=== PATIENT | female | born 1970 | race Caucasian/White ===

== ENCOUNTER 2017-03-25 02:44 | Emergency (ER) | payer BC ==
[~2017-03-25] VITALS: Ht 162.6 cm; Wt 88.6 kg
[2017-03-25 02:46] VITALS: TEMP 98.5; Ht 162.6 cm; Wt 88.6 kg
[2017-03-25] MEDS ORDERED: NO CURRENT HOME MEDS (03:00)
--- NOTE | 2017-03-25 03:05 | ERPDOC ---
Departure Disposition Decision Date: March 25, 2017 Disposition Decision Time: 04:44 Disposition: 01 DISCHARGED HOME, SELF-CARE Impression Impression Impression: Primary Impression: Abdominal pain Additional Impressions: Nausea & vomiting Dehydration Severity: Moderate Condition: Improved Seen By: Physician only Patient Instructions: Acute Abdominal Pain (ED) Problems/Meds/Labs Reviewed?: Yes Medications reviewed and manag: Yes Additional Instructions: Zofran 4 mg every 6 hours as needed for nausea. Clear liquids for 24-48 hours to rest bowel. This weekend please stick with a bland, soft diet. See her primary care provider. Return to ED if symptoms worsen. Follow up care ordered?: Yes Mental Status: Alert, Oriented HPI - Abdominal Pain General Chief Complaint: Abdominal Pain Stated Complaint: ABD PAIN, N/V Time Seen by Provider: 03:02 HPI - Abdominal Pain Initial Comments 46-year-old female presents with abdominal pain, nausea vomiting for approximately 8 hours. She began getting sick about 8:00 or 9:00 last night. She felt a little nauseated after lunch and thought she might of eat and too quickly. It that feeling did not settle during the afternoon, and then tonight she began throwing up. She has midepigastric pain and was unable to sleep tonight due to the pain. Rates pain is 7-8 out of 10. No fever or chills, no abdominal trauma. is not sick. Allergies: Coded Allergies: NKDA (Verified Allergy, Unknown, 03/25/17) Past History Past Medical History Pt denies signifigant PMH Surgical History Denies Surgeries Family History Family PMH: FOUND: diabetes Social History Smoking Status: Current every day smoker Substance Use Type: does not use Record Review Pertinent history updated: Yes Review of Systems Pulmonary Respiratory: see HPI GI Upper Abdomen: see HPI Lower Abdomen: see HPI All other Systems All Other Systems: Reviewed and Negative Physical Exam General General Nourishment: well nourished, well developed, appears stated age General Body Habitus: well groomed Vitals and Pain First Documented Vital Signs Date Time Temp Pulse Resp B/P Pulse Ox O2 Delivery O2 Flow Rate FiO2 03/25/17 02:46 98.5 96 14 147/79 96 03/25/17 03:00 Room Air Weight: Kilograms: Height (feet): Height (inches): Triage Pain Scale: Normal Exams: Head: Normocephalic w/o trauma Neck: Full range of motion, without adenopathy, JVD, bruits or thyromegaly Chest/Resp: Clear all marcum, with good airflow, and symmetry bilaterally CV: Regular rate and rhythm, without murmur or gallop, Pulses 2+ all extremities, capillary refill, <2 seconds all ext., no pedal edema noted Neurologic: Patient is alert, and oriented, cranial nerves, motor/sensory/ cerebellar, exams w/o gross deficits, to observation Psychiatric: Patient exhibits, appropriate attention, emotion and affect Abdomen (brief) Abdominal Brief: FOUND: bowel normo active x4, soft, tender (midepigastric), NOT FOUND: distended, hepatosplenomegaly, pulsatile mass Neurologic (brief) Neurological Brief: FOUND: CN w/o gross def to obs, motor-no gross deficits, sensory-no gross deficits Differential Diagnoses Considering: Aortic Dissection, Biliary Colic, Bowel Obstruction, Cholecystitis , Constipation, Crohn's, Diverticulitis, Gastroenteritis, IBS, Ileus, UTI Progress Results/Orders Orders Procedure Category Date Status Time Iv Lock (Ed Only) EDM 03/25/17 Transmitted 03:07 Cbc W/Auto LAB 03/25/17 Complete Diff-Reflex Manual 03:07 Cmp - Comprehensive LAB 03/25/17 Complete Metabolic 03:07 Lipase LAB 03/25/17 Complete 03:07 Kub W/Upright RAD 03/25/17 Taken 03:07 Normal Saline (Normal PHA 03/25/17 Complete Saline Iv) 03:07 Morphine Sulfate PHA 03/25/17 Complete (Morphine) 03:15 Ondansetron Inj PHA 03/25/17 Complete (Zofran) 03:15 G.I. Cocktail PHA 03/25/17 Complete (/Maalox/Lidocaine 03:15 Ketorolac (Toradol) PHA 03/25/17 Complete 03:15 LAB 03/25/17 Complete Qualitative, Serum 03:07 UA, LAB 03/25/17 Complete Dip&Micro(Complete) & 03:33 Lab Results Laboratory Tests Test 03/25/17 03:33 White Blood Count 9.9T/MM3 Red Blood Count 4.46M/MM3 Hemoglobin 13.9GM/DL Hematocrit 40.4% Mean Corpuscular Volume 90.6UM3 Mean Corpuscular Hemoglobin 31.2UUG Mean Corpuscular Hemoglobin Concent 34.4GM/DL RDW Standard Deviation 39.4FL Platelet Count 226T/MM3 Mean Platelet Volume 9.6UM3 Immature Granulocyte % (Auto) % Neutrophils (%) (Auto) % Lymphocytes (%) (Auto) % Monocytes (%) (Auto) % Eosinophils (%) (Auto) % Basophils (%) (Auto) % Absolute Immature Granulocyte (auto T/MM3 Absolute Neutrophils (auto) T/MM3 Absolute Lymphocytes (auto) T/MM3 Absolute Monocytes (auto) T/MM3 Absolute Eosinophils (auto) T/MM3 Absolute Basophils (auto) T/MM3 Neutrophils % (Manual) 91.0% Band Neutrophils % 1.0% Lymphocytes % (Manual) 7.0% Monocytes % (Manual) 1.0% Absolute Neutrophils (Manual) 9.0T/MM3 Band Neutrophils # 0.1T/MM3 Lymphocytes # (Manual) 0.7T/MM3 Monocytes # (Manual) 0.1T/MM3 Red Cell Morphology Comment Normal Urine Collection Type Cleancatch-midstream Urine Color Yellow Urine Turbidity Cloudy Urine pH 6.0 Urine Specific [place] 1.020 Urine Protein Negative Urine Glucose (UA) Negative Urine Ketones 2+ Urine Blood 1+ Urine Nitrite Negative Urine Bilirubin Negative Urine Urobilinogen 0.2EU/DL Urine Leukocyte Esterase 1+ Urine RBC None seen/HPF Urine WBC 3-5/HPF Urine Amorphous Urates Many Urine Bacteria None seen Urine Culture Indicated Cult not indicated Turbidity < 20 Sodium Level 140MEQ/L Potassium Level 3.8MEQ/L Chloride Level 104MEQ/L Carbon Dioxide Level 23MEQ/L Anion Gap 13MEQ/L Blood Urea Nitrogen 16.0MG/DL Creatinine 0.7MG/DL Glomerular Filtration Rate Calc 90 BUN/Creatinine Ratio 23RATIO Glucose Level 139MG/DL Calculated Osmolality 272MOSM/KG Calcium Level 8.9MG/DL Total Bilirubin 0.90MG/DL Icterus Index < 2 Aspartate Amino Transf (AST/SGOT) 22U/L Alanine Aminotransferase (ALT/SGPT) 49U/L Alkaline Phosphatase 50U/L Total Protein 7.3G/DL Albumin 4.6G/DL Globulin 2.7G/DL Albumin/Globulin Ratio 1.7RATIO Lipase 77U/L Human Chorionic Gonadotropin, Qual Negative Chemistry Specimen Hemolysis < 15 Medications Current ED Medications Sodium Chloride (Normal Saline IV) 1,000 ml @ 1,000 mls/hr Q1H ONCE IV Last administered on 03/25/17 03:32; Start 03/25/17 at 03:07; Stop 03/25/17 at 04:06 ; Status DC Morphine Sulfate (Morphine) 2 mg O ONCE IV Last administered on 03/25/17 03: 33; Start 03/25/17 at 03:15; Stop 03/25/17 at 03:16; Status DC Ondansetron HCl (Zofran) 4 mg O ONCE IV Last administered on 03/25/17 03:37; Start 03/25/17 at 03:15; Stop 03/25/17 at 03:16; Status DC Pharmacy Profile Note (/Maalox/ Lidocaine Soln) 30 ml O ONCE PO Last administered on 03/25/17 03:23; Start 03/25/17 at 03:15; Stop 03/25/17 at 03:16 ; Status DC Ketorolac Tromethamine (Toradol) 30 mg O ONCE IV Last administered on 03:37; Start 03/25/17 at 03:15; Stop 03/25/17 at 03:16; Status DC Progress Progress Patient's pain and nausea responded nicely to 1 L of normal saline, 2 mg of morphine, 30 mg of Toradol and 4 mg of Zofran IV. Labs returned appropriate, and I do think this is most likely gallbladder. Patient does have an acute dilation of bowel without significant air fluid levels, which likely contributed to her pain tonight. She will go on clear liquids for the next 48 hours, and follow-up with her primary care provider to set up an ultrasound. If pain worsens, she should return to the ED. She is discharged with Zofran for nausea and will follow up with primary care provider SIDNEY. DEL JOHNSON MD March 25, 2017 03:05
--- NOTE | 2017-03-25 03:20 | NUR ---
BR PT AMBULATES TO BR AND VOIDS, URINE SAMPLE IS OBTAINED FOR LAB.
[2017-03-25] MEDS: G.I. COCKTAIL 30ml PO ONE (03:23)
[2017-03-25] MEDS: NORMAL SALINE 1,000 ML IV ONE (03:32)
[2017-03-25] MEDS: MORPHINE SULFATE 4 MG SYRINGE IV ONE (03:33)
[2017-03-25] MEDS: KETOROLAC 30mg/ml INJECTION IV ONE (03:37)
[2017-03-25] MEDS: ONDANSETRON 4mg/2ml INJECTION IV ONE (03:37)
[2017-03-25 03:40] LABS: BLOOD, URINE 1+ (NEGATIVE); COLOR,URINE YELLOW (YELLOW); HCT - HEMATOCRIT 40.4 % (36-46); HGB - HEMOGLOBIN 13.9 GM/DL (12-16); LEUKOCYTE ESTERASE ,URINE 1+ (NEGATIVE); MEAN CORPUSCULAR HGB 31.2 UUG (26-34); MEAN CORPUSCULAR HGB CONC(MCHC 34.4 GM/DL (31-37); MEAN CORPUSCULAR VOLUME 90.6 UM3 (80-100); MEAN PLATELET VOLUME 9.6 UM3 (9.4-12.4); NITRITE,URINE NEGATIVE (NEGATIVE); RED BLOOD COUNT 4.46 M/MM3 (4.00-5.20); UROBILINOGEN,URINE 0.2 EU/DL (NORMAL); WBC - WHITE BLOOD COUNT 9.9 T/MM3 (4.5-11.0)
[2017-03-25 03:46] LABS: BACTERIA,URINE NONE SEEN (NEGATIVE); RBC,URINE NONE SEEN /HPF (0-3)
[2017-03-25 03:49] LABS: ALBUMIN 4.6 G/DL (3.5-5.0); ALBUMIN/GLOBULIN RATIO 1.7 RATIO (1.1-2.2); ALKALINE PHOSPHATASE 50 U/L (38-126); ALT (SGPT) 49 U/L (9-52); ANION GAP 13 MEQ/L (5-15); AST (SGOT) 22 U/L (14-36); BUN/CREATININE RATIO 23 RATIO (6-26); CALCIUM 8.9 MG/DL (8.4-10.2); CHLORIDE 104 MEQ/L (98-107); CO2 - CARBON DIOXIDE 23 MEQ/L (22-30); CREATININE 0.7 MG/DL (0.7-1.2); GLOMERULAR FILTRATION RATE 90; GLUCOSE 139 MG/DL (65-110); LIPASE 77 U/L (23-300); POTASSIUM 3.8 MEQ/L (3.6-5); SODIUM 140 MEQ/L (134-144); TOTAL PROTEIN 7.3 G/DL (6.3-8.2)
[2017-03-25 03:58] LABS: BAND NEUTROPHILS # 0.1 T/MM3; LYMPHOCYTES # (MANUAL) 0.7 T/MM3 (1-4.8); MONOCYTES # (MANUAL) 0.1 T/MM3 (0-0.8); TOTAL CELLS COUNTED 100 %
--- NOTE | 2017-03-25 04:00 | NUR ---
IMAGING PT LEAVES VIA WHEELCHAIR WITH IMAGING STAFF AT THIS TIME.
--- NOTE | 2017-03-25 04:15 | NUR ---
RETURN PT RETURNS TO ROOM.
--- NOTE | 2017-03-25 04:18 | NUR ---
STATUS PT REPORTS PAIN MUCH IMPROVED AND RATES 3/10 AT THIS TIME. PT DENIES ANY NAUSEA.
[2017-03-25] MEDS ORDERED: ONDA4TAB4 PO (04:48)
[2017-03-25 05:03] VITALS: BP 127/67; PULSE 92; RESP 12; O2SAT 92
--- NOTE | 2017-03-25 05:03 | NUR ---
DEPART PT IS DISCHARGED AT THIS TIME, INSTRUCTIONS ARE REVIEWED AND UNDERSTANDING IS VOICED. PT LEAVES AMBULATORY.
--- NOTE | 2017-03-25 07:54 | DI ---
Indication: ITS.REASON: midepigastric pain PROCEDURE: KUB W/UPRIGHT: Encounter: Initial Comparison: None Findings: The visualized lung bases are clear. There is no free air on the upright view. The bowel gas pattern is nonobstructive and nonspecific. Gas is seen in nondilated small and large bowel to the level of the rectum. Prominent gas-filled loops of colon. Moderate stool is seen throughout the colon. The bony structures are grossly unremarkable. Impression: Nonobstructive nonspecific bowel gas pattern. .
== END 2017-03-25 05:03 | disposition home or self-care (01) ==
LOC: ED 02:44
DX: R10.13 Epigastric pain (principal); R11.2 Nausea with vomiting, unspecified; E86.0 Dehydration
CPT/HCPCS: 74020; 80053; 81001; 83690; 84703; 85025; 96361; 96374; 96375; 99284; J1885; J2405; J7030; J7999

== ENCOUNTER 2017-03-27 21:26 | Emergency (ER) | payer BC ==
[~2017-03-27] VITALS: Ht 162.6 cm; Wt 88.7 kg
[~2017-03-27 21:26] MED LIST: NO CURRENT HOME MEDS; ONDA4TAB4 PO
--- OUTSIDE RECORDS SUMMARY | 2017-03-27 21:29 | XMS REPORT | Continuity of Care Document ---
Author Author [facility] Organization [facility] Address Unknown Phone Unavailable Support Name Relationship Address Phone DEL JOHNSON MD Caregiver [address] [place] [phone] Unavailable ELEONORA PIERRE Next Of Kin [address] [place], [place] [phone] Insurance Providers Guarantor Blanche Pierre Address [address] [place] [address] Email DENIED 17 Payer [employer] Other Policy Number [id number] Subscriber's Name Blanche Pierre Relationship 18 Self Group Number [id number] Advance Directives Directive Response Recorded Date/Time Advanced Directives Type None 03/25/17 2:46am Chief Complaint and Reason for Visit Chief Complaint Abdominal Pain Reason for Visit Nausea & vomiting Abdominal pain Dehydration Problems Past Problems Medical Problem Onset Date Abdominal pain Unknown Dehydration Unknown Nausea & vomiting Unknown Medications Current Home Medications Medication Dose Units Route Directions Days Qty Instructions Start Date No Current Home Meds 03/25/17 Ondansetron Hcl (Zofran) 4 Mg Tablet 4 Mg Oral Every 6 Hours for Nausea 30 Tablet 03/25/17 Social History Social History Problem Response Recorded Date/Time Onset Date Status Chewing Tobacco Status No 03/25/2017 4:23am Not Applicable Not Applicable Hx Alcohol Use No 03/25/2017 4:23am Not Applicable Not Applicable Query Response Start Date Stop Date Smoking Status Unknown if ever smoked Hospital Discharge Instructions No hospital discharge instructions. Plan of Care Discharge Date 03/25/17 5:03am Disposition 01 DISCHARGED HOME, SELF-CARE Condition at Discharge Improved Instructions/Education Provided Acute Abdominal Pain (ED) Prescriptions See Medication Section Additional Instructions/Education Zofran 4 mg every 6 hours as needed for nausea. Clear liquids for 24-48 hours to rest bowel. This weekend please stick with a bland, soft diet. See her primary care provider. Return to ED if symptoms worsen. Functional Status No functional status results. Allergies, Adverse Reactions, Alerts Allergen Type Severity Reaction Status Last Updated NKDA Allergy Unknown Active 03/25/17 Immunizations No immunization records. Vital Signs Acute Vital Signs Vital Response Date/Time Temperature (Fahrenheit) 98.5 deg F (96.8 - 99.1) 03/25/2017 2:46am Temperature (Calculated Celsius) 36.76733 degrees C (36.0 - 37.3) 03/25/2017 2:46am Pulse Rate (adult) 92 bpm (60 - 100) 03/25/2017 5:03am Respiratory Rate 12 breaths/min (10 - 20) 03/25/2017 5:03am O2 Sat by Pulse Oximetry 92 % (90 - 100) 03/25/2017 5:03am Blood Pressure 127/67 mm Hg 03/25/2017 5:03am Height (Feet) 5 feet 03/25/2017 2:46am Height (Inches) 4.00 inches 03/25/2017 2:46am Weight (Kilograms) 88.600 kg 03/25/2017 2:46am Body Mass Index (BMI) 33.0 03/25/2017 2:46am Results Laboratory Results Test Name Result Units Flags Reference Collection Date/Time Result Date/ Time Comments White Blood Count 9.9 T/MM3 4.5-11.0 03/25/2017 3:33am 03/25/2017 3: 44am Red Blood Count 4.46 M/MM3 4.00-5.20 03/25/2017 3:33am 03/25/2017 3: 44am Hemoglobin 13.9 GM/DL 12-16 03/25/2017 3:33am 03/25/2017 3:44am Hematocrit 40.4 % 36-46 03/25/2017 3:33am 03/25/2017 3:44am Mean Corpuscular Volume 90.6 UM3 80-100 03/25/2017 3:33am 03/25/2017 3: 44am Mean Corpuscular Hemoglobin 31.2 UUG 26-34 03/25/2017 3:33am 2016 3:44am Mean Corpuscular Hemoglobin Concent 34.4 GM/DL 31-37 03/25/2017 3:33am 03/25/2017 3:44am RDW Standard Deviation 39.4 FL 36.9-50.2 03/25/2017 3:3303/25/2017 3 :44am Platelet Count 226 T/MM3 130-400 03/25/2017 3:3303/25/2017 3:44am Mean Platelet Volume 9.6 UM3 9.4-12.4 03/25/2017 3:3303/25/2017 3: 44am Neutrophils % (Manual) 91.0 % H 33-66 03/25/2017 3:03/25/2017 3: 58am Band Neutrophils % 1.0 % 0-6 03/25/2017 3:03/25/2017 3:58am Lymphocytes % (Manual) 7.0 % L 23-45 03/25/2017 3:03/25/2017 3: 58am Monocytes % (Manual) 1.0 % 0-9.0 03/25/2017 3:03/25/2017 3:58am Band Neutrophils # 0.1 T/MM3 03/25/2017 3:03/25/2017 3:58am Absolute Neutrophils (Manual) 9.0 T/MM3 H 1.8-7.7 03/25/2017 3: 3:58am Lymphocytes # (Manual) 0.7 T/MM3 L 1-4.8 03/25/2017 3:03/25/2017 3: 58am Monocytes # (Manual) 0.1 T/MM3 0-0.8 03/25/2017 3:03/25/2017 3: 58am Red Cell Morphology Comment NORMAL 03/25/2017 3:03/25/2017 3: 58am Icterus Index < 2 0-7 03/25/2017 3:3303/25/2017 3:49am Chemistry Specimen Hemolysis < 15 0-25 03/25/2017 3:03/25/2017 3 :49am 0-25: Specimen Exhibited No Hemolysis. Turbidity < 20 0-20 03/25/2017 3:03/25/2017 3:49am Sodium Level 140 MEQ/L 134-144 03/25/2017 3:3303/25/2017 3:49am Potassium Level 3.8 MEQ/L 3.6-5 03/25/2017 3:3303/25/2017 3:49am Chloride Level 104 MEQ/L 98-107 03/25/2017 3:3303/25/2017 3:49am Carbon Dioxide Level 23 MEQ/L 22-30 03/25/2017 3:3303/25/2017 3: 49am Anion Gap 13 MEQ/L 5-15 03/25/2017 3:3303/25/2017 3:49am Blood Urea Nitrogen 16.0 MG/DL 7-17 03/25/2017 3:3303/25/2017 3: 49am Creatinine 0.7 MG/DL 0.7-1.2 03/25/2017 3:3303/25/2017 3:49am BUN/Creatinine Ratio 23 RATIO 6-03/25/2017 3:3303/25/2017 3:49am Glomerular Filtration Rate Calc 90 03/25/2017 3:3303/25/2017 3: 49am Glucose Level 139 MG/DL H 65-110 03/25/2017 3:3303/25/2017 3:49am Calculated Osmolality 272 MOSM/KG 261-280 03/25/2017 3:3303/25/2017 3:49am Calcium Level 8.9 MG/DL 8.4-10.2 03/25/2017 3:3303/25/2017 3:49am Total Bilirubin 0.90 MG/DL 0.20-1.30 03/25/2017 3:3303/25/2017 3: 49am Alkaline Phosphatase 50 U/L 38-126 03/25/2017 3:3303/25/2017 3:49am Total Protein 7.3 G/DL 6.3-8.2 03/25/2017 3:3303/25/2017 3:49am Albumin 4.6 G/DL 3.5-5.0 03/25/2017 3:3303/25/2017 3:49am Globulin 2.7 G/DL 2.4-3.6 03/25/2017 3:3303/25/2017 3:49am Albumin/Globulin Ratio 1.7 RATIO 1.1-2.2 03/25/2017 3:3303/25/2017 3 :49am Aspartate Amino Transf (AST/SGOT) 22 U/L 14-36 03/25/2017 3:332016 3:49am Alanine Aminotransferase (ALT/SGPT) 49 U/L 9-52 03/25/2017 3:33am 03/25 3:49am Lipase 77 U/L 23-300 03/25/2017 3:33am 03/25/2017 3:49am Urine Collection Type CLEANCATCH-MIDSTREAM 03/25/2017 3:33am 2016 3:40am Urine Color YELLOW YELLOW 03/25/2017 3:33am 03/25/2017 3:40am Urine Turbidity CLOUDY CLEAR 03/25/2017 3:33am 03/25/2017 3:40am Urine Specific [place] 1.020 1.015-1.025 03/25/2017 3:33am 2016 3:40am Urine pH 6.0 5.0-8.0 03/25/2017 3:33am 03/25/2017 3:40am Urine Leukocyte Esterase 1+ A NEGATIVE 03/25/2017 3:33am 03/25/2017 3: 40am Urine Nitrite NEGATIVE NEGATIVE 03/25/2017 3:33am 03/25/2017 3:40am Urine Protein NEGATIVE NEGATIVE 03/25/2017 3:33am 03/25/2017 3:40am Urine Glucose (UA) NEGATIVE NEGATIVE 03/25/2017 3:33am 03/25/2017 3: 40am Urine Ketones 2+ A NEGATIVE 03/25/2017 3:33am 03/25/2017 3:40am Urine Urobilinogen 0.2 EU/DL NORMAL 03/25/2017 3:33am 03/25/2017 3: 40am Urine Bilirubin NEGATIVE NEGATIVE 03/25/2017 3:33am 03/25/2017 3: 40am Urine Blood 1+ A NEGATIVE 03/25/2017 3:33am 03/25/2017 3:40am Urine WBC 3-5 /HPF 0-5 03/25/2017 3:33am 03/25/2017 3:47am Urine RBC NONE SEEN /HPF 0-3 03/25/2017 3:33am 03/25/2017 3:47am Urine Bacteria NONE SEEN NEGATIVE 03/25/2017 3:33am 03/25/2017 3: 47am Urine Amorphous Urates MANY 03/25/2017 3:33am 03/25/2017 3:47am Urine Culture Indicated CULT NOT INDICATED 03/25/2017 3:33am 2016 3:47am Procedures No known history of procedures. Encounters Encounter Location Arrival/Admit Date Discharge/Depart Date Attending Provider Departed Emergency Room [facility] 03/25/17 2:44am 03/25/17 5: 03am DEL JOHNSON MD Recent Diagnosis
[2017-03-27 21:35] VITALS: TEMP 99.8; Ht 162.6 cm; Wt 88.7 kg
[2017-03-27] MEDS ORDERED: PROCHLORPERAZINE 10mg/2ml INJECTION IV ONE (21:45)
[2017-03-27] MEDS ORDERED: KETOROLAC 30mg/ml INJECTION IV ONE (21:45)
[2017-03-27] MEDS ORDERED: NORMAL SALINE 1,000 ML IV ONE (21:45)
--- NOTE | 2017-03-27 21:47 | ERPDOC ---
Departure Disposition Decision Date: March 27, 2017 Disposition Decision Time: 23:18 Disposition: 02 TO [facility] Impression Impression Impression: Primary Impression: Ruptured appendicitis Additional Impression: Peritoneal abscess Severity: Moderate Condition: Improved Seen By: Physician only Problems/Meds/Labs Reviewed?: Yes Medications reviewed and manag: Yes Follow up care ordered?: Yes Mental Status: Alert HPI - Abdominal Pain General Chief Complaint: Abdominal Pain Stated Complaint: SEVERE ABDOMINAL PAIN Time Seen by Provider: 21:41 Source: patient History/Exam Limitations: no limitations HPI - Abdominal Pain Initial Comments Patient was seen in the ER several days ago for nausea vomiting and diarrhea associated with right lower quadrant abdominal pain. At that time the patient's lab work was normal, KUB of the abdomen was normal, and patient felt much better after medications and fluids. Patient went home with prescription for Zofran and did well for 2 days, and then today the patient's right lower quadrant pain began getting more intense, it is much worse than it even had been before. Occurred At: home Onset: Rapid Duration: 12-24 hrs Quality: sharpness Location: RLQ Radiation: no radiation Associated Symptoms: nausea/vomiting, DENIES: back pain, chest pain, diaphoresis, fatigue, fever/chills, headache, heartburn, rash, shortness of breath, swelling/mass in abdomen, syncope, weakness Hx of Similar Symptoms: Yes Allergies: Coded Allergies: NKDA (Verified Allergy, Unknown, 03/25/17) Past History Past Medical History Pt denies signifigant PMH Surgical History Denies Surgeries Family History Family PMH: FOUND: diabetes Social History Smoking Status: Never smoker Does patient use chewing tobac: No Second Hand Exposure: No Substance Use Type: does not use Record Review Pertinent history updated: Yes Review of Systems Constitutional Constitutional: DENIES: appetite decrease, appetite increase, chills, dizziness , fever, weakness ENMT Ears: DENIES: pain Hearing: DENIES: hearing loss, tinnitus Balance: DENIES: vertigo Mouth/Throat: DENIES: change in swallowing, change in voice, hoarsness, painful swallowing, sore throat Cardiovascular Cardiac: DENIES: chest pain, dyspnea on exertion Rhythm/Rate: DENIES: irregular beat, palpitations, tachycardia Vascular: DENIES: pedal edema Pulmonary Respiratory: DENIES: cough, dyspnea, pleuritic chest pain GI Upper Abdomen: nausea, DENIES: dysphagia, food intolerances, heartburn/ indigestion, hematemesis, pain, vomiting Lower Abdomen: pain, DENIES: blood in stool, davi-colored stools, constipation , diarrhea, melena, painful BM General: DENIES: burning, dysuria, frequency, pain, urgency Musculoskeletal General: DENIES: cramps, joint pain, joint swelling, pain, weakness Integumentary Skin: DENIES: rash, sores Neurological General: DENIES: headache, numbness, tingling, vertigo, weakness Psychiatric Psychiatric: DENIES: anxiety, depression, nervousness Physical Exam General General Nourishment: well nourished, well developed, appears stated age General Body Habitus: well groomed Vitals and Pain First Documented Vital Signs Date Time Temp Pulse Resp B/P Pulse Ox O2 Delivery O2 Flow Rate FiO2 03/27/17 21:35 99.8 123 12 103/56 94 Room Air Weight: Kilograms: Height (feet): 5 Height (inches): 4.00 Triage Pain Scale: RN VS reviewed by Provider: Yes Normal Exams: Head: Normocephalic w/o trauma Eyes: Pupils are PERRLA w/ EOMI, No scleral icterus, irritation, or foreign bodies noted ENMT: No facial trauma, nasal exudates, pharyngeal erythema, or exudates are noted Neck: Full range of motion, without adenopathy, JVD, bruits or thyromegaly Chest/Resp: Clear all marcum, with good airflow, and symmetry bilaterally CV: Regular rate and rhythm, without murmur or gallop, Pulses 2+ all extremities, capillary refill, <2 seconds all ext., no pedal edema noted Lymphatic: No lymphadenopathy, or lymphedema noted Musculoskeletal: No tenderness, or deformity noted, good range of motion, all extremities Integumentary: No rashes, hives, or bruising noted, hair and nails, without abnormality Neurologic: Patient is alert, and oriented, cranial nerves, motor/sensory/ cerebellar, exams w/o gross deficits, to observation Psychiatric: Patient exhibits, appropriate attention, emotion and affect Abdomen (brief) Abdominal Brief: FOUND: bowel normo active x4, soft, tender (moderate right lower quadrant tenderness with mild rebounding, mild guarding.), NOT FOUND: distended, hepatosplenomegaly Progress Results/Orders Orders Procedure Category Date Status Time Iv Lock (Ed Only) EDM 03/27/17 Transmitted 21:43 Cbc W/Auto LAB 03/27/17 Complete Diff-Reflex Manual Cmp - Comprehensive LAB 03/27/[address] Abd/Pelvis CT 03/27/17 Taken W/Contrast Only Ketorolac (Toradol) PHA 03/27/17 Complete 21:45 Prochlorperazine PHA 03/27/17 Complete (Compazine) 21:45 Normal Saline (Normal PHA 03/27/17 Complete Saline Iv) 21:45 Lipase LAB 03/27/17 Complete Iohexol (Omnipaque) PHA 03/27/17 Complete 21:55 Normal Saline (Ns) PHA 03/27/17 Complete 21:55 Saline Flush (Iv PHA 03/27/17 Complete Flush) 21:55 Lab Results Laboratory Tests Test 03/27/17 21:59 White Blood Count 14.8T/MM3 Red Blood Count 4.08M/MM3 Hemoglobin 13.0GM/DL Hematocrit 37.6% Mean Corpuscular Volume 92.2UM3 Mean Corpuscular Hemoglobin 31.9UUG Mean Corpuscular Hemoglobin Concent 34.6GM/DL RDW Standard Deviation 41.2FL Platelet Count 194T/MM3 Mean Platelet Volume 9.5UM3 Immature Granulocyte % (Auto) % Neutrophils (%) (Auto) % Lymphocytes (%) (Auto) % Monocytes (%) (Auto) % Eosinophils (%) (Auto) % Basophils (%) (Auto) % Absolute Immature Granulocyte (auto T/MM3 Absolute Neutrophils (auto) T/MM3 Absolute Lymphocytes (auto) T/MM3 Absolute Monocytes (auto) T/MM3 Absolute Eosinophils (auto) T/MM3 Absolute Basophils (auto) T/MM3 Neutrophils % (Manual) 81.0% Band Neutrophils % 4.0% Lymphocytes % (Manual) 5.0% Monocytes % (Manual) 10.0% Absolute Neutrophils (Manual) 12.0T/MM3 Band Neutrophils # 0.6T/MM3 Lymphocytes # (Manual) 0.7T/MM3 Monocytes # (Manual) 1.5T/MM3 Red Cell Morphology Comment Normal Turbidity < 20 Sodium Level 137MEQ/L Potassium Level 3.3MEQ/L Chloride Level 99MEQ/L Carbon Dioxide Level 25MEQ/L Anion Gap 13MEQ/L Blood Urea Nitrogen 12.0MG/DL Creatinine 0.8MG/DL Glomerular Filtration Rate Calc 77 BUN/Creatinine Ratio 15RATIO Glucose Level 110MG/DL Calculated Osmolality 265MOSM/KG Calcium Level 8.2MG/DL Total Bilirubin 1.10MG/DL Icterus Index < 2 Aspartate Amino Transf (AST/SGOT) 15U/L Alanine Aminotransferase (ALT/SGPT) 36U/L Alkaline Phosphatase 49U/L Total Protein 6.6G/DL Albumin 3.7G/DL Globulin 2.9G/DL Albumin/Globulin Ratio 1.3RATIO Lipase 61U/L Chemistry Specimen Hemolysis 24 Medications Current ED Medications Ketorolac Tromethamine (Toradol) 30 mg O ONCE IV Last administered on 22:04; Start 03/27/17 at 21:45; Stop 03/27/17 at 21:46; Status DC Prochlorperazine Edisylate 10 mg 10 mg O ONCE IV Last administered on 22:02; Start 03/27/17 at 21:45; Stop 03/27/17 at 21:46; Status DC Sodium Chloride (Normal Saline IV) 1,000 ml @ 0 mls/hr Q0M ONCE IV Last administered on 03/27/17 22:02; Start 03/27/17 at 21:45; Stop 03/27/17 at 21:46 ; Status DC Iohexol 1 bottle 1 bottle STK-MED ONCE .ROUTE ; Start 03/27/17 at 21:55; Stop at 21:56; Status DC Sodium Chloride (NS) 100 ml @ As Directed STK-MED ONCE .ROUTE ; Start 03/27/17 at 21:55; Stop 03/27/17 at 21:56; Status DC Sodium Chloride (Iv Flush) 10 ml STK-MED ONCE .ROUTE ; Start 03/27/17 at 21:55; Stop 03/27/17 at 21:56; Status DC Progress Progress Patient given Toradol, Compazine, and 1 L normal saline IV fluid bolus - CBC - minimal white cell elevation with no significant shift CMP/L - normal CT abdomen - Appendicitis with microperforation and abscess adjacent to the cecum Case is discussed with Dr. Stevens - he recommends transfer to [facility] for possible CT/sono guided needle drainage of abscess rather than back to [facility]. I did discuss this with the patient, she states that she would prefer a non-open appendectomy treatment of possible, and is willing to go [facility] is her preference. Unassigned surgical attending, Dr. Lee Ann Dooley contacted - accepted for Dr. Watson to [facility] ADITYA ROBERTSON MD March 27, 2017 21:47
[2017-03-27] MEDS ORDERED: NORMAL SALINE 100 ML ONE (21:55)
[2017-03-27] MEDS ORDERED: IOHEXOL 300 MG/ML 75ml INJECTION ONE (21:55)
[2017-03-27] MEDS ORDERED: SALINE FLUSH 10ml SYRINGE ONE (21:55)
--- NOTE | 2017-03-27 21:58 | NUR ---
IMAGING PT LEAVES WITH IMAGING STAFF AT THIS TIME.
[2017-03-27 22:12] LABS: HCT - HEMATOCRIT 37.6 % (36-46); MEAN CORPUSCULAR HGB 31.9 UUG (26-34); MEAN CORPUSCULAR HGB CONC(MCHC 34.6 GM/DL (31-37); MEAN CORPUSCULAR VOLUME 92.2 UM3 (80-100); MEAN PLATELET VOLUME 9.5 UM3 (9.4-12.4); RED BLOOD COUNT 4.08 M/MM3 (4.00-5.20); WBC - WHITE BLOOD COUNT 14.8 T/MM3 (4.5-11.0)
[2017-03-27 22:17] LABS: ALBUMIN 3.7 G/DL (3.5-5.0); ALBUMIN/GLOBULIN RATIO 1.3 RATIO (1.1-2.2); ALKALINE PHOSPHATASE 49 U/L (38-126); ALT (SGPT) 36 U/L (9-52); ANION GAP 13 MEQ/L (5-15); AST (SGOT) 15 U/L (14-36); BUN/CREATININE RATIO 15 RATIO (6-26); CALCIUM 8.2 MG/DL (8.4-10.2); CHLORIDE 99 MEQ/L (98-107); CO2 - CARBON DIOXIDE 25 MEQ/L (22-30); CREATININE 0.8 MG/DL (0.7-1.2); GLOMERULAR FILTRATION RATE 77; GLUCOSE 110 MG/DL (65-110); LIPASE 61 U/L (23-300); POTASSIUM 3.3 MEQ/L (3.6-5); SODIUM 137 MEQ/L (134-144); TOTAL PROTEIN 6.6 G/DL (6.3-8.2)
--- NOTE | 2017-03-27 22:22 | NUR ---
RETURN PT RETURNS TO ROOM AT THIS TIME.
[2017-03-27 22:23] LABS: BAND NEUTROPHILS # 0.6 T/MM3; LYMPHOCYTES # (MANUAL) 0.7 T/MM3 (1-4.8); MONOCYTES # (MANUAL) 1.5 T/MM3 (0-0.8); TOTAL CELLS COUNTED 100 %
--- NOTE | 2017-03-27 22:30 | NUR ---
PAIN PT REPORTS NO PAIN WHEN AT REST.
[2017-03-27] MEDS ORDERED: GI COCKTAIL (22:34)
--- NOTE | 2017-03-27 23:48 | NUR ---
REPORT GIVEN TO LEN ADAMS AT [facility] AT THIS TIME.
--- NOTE | 2017-03-27 23:55 | NUR ---
DISPATCH 911 DISPATCH CONTACTED FOR PT TRANSFER AT THIS TIME.
[2017-03-28 00:10] VITALS: BP 119/69; PULSE 106; RESP 16; O2SAT 94
--- NOTE | 2017-03-28 00:10 | NUR ---
DEPART PT LEAVES VIA [facility] AT THIS TIME.
--- NOTE | 2017-03-28 10:10 | DI ---
Indication: ITS.REASON: RLQ PAIN PROCEDURE: CT ABD/PELVIS W/CONTRAST ONLY: Encounter: Initial Comparison: None Technique: Axial CT images were performed through the abdomen and pelvis after the administration of intravenous contrast. Coronal and sagittal two-dimensional reformats. Automated Exposure Control and Iterative Reconstruction dose reducing techniques were utilized. Contrast: Omnipaque 300 74 mL Findings: Atelectasis in both lung bases. The liver is fatty infiltrated without discrete enhancing mass or bile duct dilatation. Multiple prominent gallstones in the gallbladder. The spleen, pancreas and adrenal glands are within normal limits. The kidneys are normal. No abdominal or pelvic lymphadenopathy. Bladder is normal. Uterus and ovaries are within normal limits. Small amount of free pelvic fluid. No evidence of a bowel obstruction. Significant inflammatory change and stranding surrounding the right colon, particularly the hepatic flexure. There is an abnormal thickened inflamed appendix present with an appendicolith. This measures up to 1.4 cm in diameter. There is a rim-enhancing abscess seen along the right lateral conal fascia measuring 4.2 x 3 cm in diameter on axial image #60. Bone windows are unremarkable for age. Impression: 1. Perforated appendicitis with a periappendiceal abscess in the right mid abdomen. Emergent surgical consultation is recommended. 2. Bibasilar atelectasis. 3. Hepatic steatosis and cholelithiasis. There is a preliminary report by [employer]. .
== END 2017-03-28 00:10 | disposition short-term general hospital (02) ==
LOC: ED 21:26
DX: K35.3 Acute appendicitis with localized peritonitis (principal)
CPT/HCPCS: 74177; 80053; 83690; 85025; 96361; 96374; 96375; 99285; J0780; J1885; J7030; J7050; Q9967